=== PATIENT | male | born 1950 | race Caucasian/White ===

== ENCOUNTER → 2020-12-21 | Outpatient (CLI) | payer OTHER | LOC: SJCVCIMAG 16:16 → SJCVC 16:16 → SJCVCIMAG 12-25 15:26 | PROVIDERS: ATTEND Internal Medicine Cardiovascular Disease | DX: I48.0 Paroxysmal atrial fibrillation (principal); I49.5 Sick sinus syndrome; E66.9 Obesity, unspecified; N40.0 Benign prostatic hyperplasia without lower urinary tract symptoms; K21.9 Gastro-esophageal reflux disease without esophagitis; E78.5 Hyperlipidemia, unspecified; E55.9 Vitamin D deficiency, unspecified; Z98.890 Other specified postprocedural states; Z79.82 Long term (current) use of aspirin; Z79.899 Other long term (current) drug therapy; Z82.49 Family history of ischemic heart disease and other diseases of the circulatory system ==

== ENCOUNTER → 2020-12-25 | Outpatient (CLI) | payer OTHER | LOC: SJCVCIMAG 09:24 | PROVIDERS: ATTEND Internal Medicine Cardiovascular Disease | DX: I08.1 Rheumatic disorders of both mitral and tricuspid valves (principal); I48.91 Unspecified atrial fibrillation; Z79.899 Other long term (current) drug therapy ==

== ENCOUNTER → 2021-01-10 | Outpatient (CLI) | payer OTHER ==
[~2021-01-10] MED LIST: ADVIL200 M3 PO; ASA81BEC PO; CITRACAL-D3 MA1 EACH PO; CO Q-10100 M1 PO; EXCEDRIN MIGRA1 EAC1 PO; FLECAINIDE ACET50 M2 PO; GALZIN25 MG PO; MAGNESIUM250 M1 PO; NASACORT10.8 ML NARES; QUERCETIN DIHYDR1 GM PO; SILDENAFIL CIT100 MG PO; TOPROL XL25 MG PO; VITAMIN C1000 MG PO; VITAMIN D375 MCG PO
== END ==
LOC: LAB 10:34
PROVIDERS: ATTEND Internal Medicine Cardiovascular Disease
DX: Z01.812 Encounter for preprocedural laboratory examination (principal); Z20.822 Contact with and (suspected) exposure to COVID-19

== ENCOUNTER 2021-01-15 09:36 | Observation (INO) | payer OTHER ==
[~2021-01-15] VITALS: Ht 182.9 cm; Wt 83.9 kg
[2021-01-15] VITALS (8 sets, daily range): BP systolic 117–146; BP diastolic 59–88
--- NOTE | ~2021-01-15 | P ---
[facility] [place] [address] PROCEDURE REPORT Name: CL JONES Room #: 218-P [facility]..#: [id number] Admission: 01/15/21 Attend Phys: Ramiro Gil MD Discharge: Date of : 46 Report #: [id number] THIS REPORT FOR: cc: ADA LAI FAMILY PHYSICIAN or PCP Ramiro Gil MD ~ DATE OF SERVICE: 01/15/2021 PACEMAKER IMPLANTATION PREOPERATIVE DIAGNOSES: 1. Mobitz II second-degree heart block. 2. Paroxysmal atrial fibrillation. 3. Tachycardia-bradycardia syndrome. PROCEDURE PERFORMED: Dual-chamber pacemaker implantation. HISTORY: The patient is a 70-year-old recently with palpitations, lightheadedness, shortness of breath, who wore rn chronic showing periods of atrial fibrillation with rapid ventricular response and also documented Mobitz II second-degree heart block. Based on these findings, he meets criteria for tachycardia-bradycardia syndrome and is here for dual chamber pacemaker implantation. ANESTHESIA: The patient was put under MAC anesthesia with no anesthesia related complications. DESCRIPTION OF PROCEDURE: The patient underwent informed consent, we discussed the details of the procedure including the risks, which include but not limited to bleeding, infection, vascular damage, cardiac perforation and pneumothorax. He understood these risks and is willing to proceed. The patient was brought to the EP laboratory in a fasting nonsedated state and prepped and draped in a sterile fashion. He received IV antibiotics and underwent a venogram showing patency of the axillary vein. Next, I injected lidocaine to the level of the left clavicle, incision was made. A pocket was created over the prepectoral fascia and access was obtained twice through the left axillary vein using the extrathoracic approach with sheath position using the modified Seldinger technique. Next, under fluoroscopy, leads were positioned in the right ventricular apex and right atrial appendage with adequate pacing and sensing thresholds were sutured to the prepectoral fascia with Ethibond suture. Device was connected. Tug test performed. Pocket was irrigated with vancomycin. The pocket was closed in 2 layers using 2-0 for the deep layer, 3-0 for the middle layer and surgical glue was placed to the outer skin layer. The patient awoke neurologically hemodynamically intact. No complications. No significant bleeding. The implant of the pacemaker and leads were Medtronic. The generator [facility] [address] [place] [address] PROCEDURE REPORT Name: CL JONES Room #: 218-P [facility] Karina Garza#: [id number] Admission: 01/15/21 Attend Phys: Ramiro Gil MD Discharge: Date of : 46 Report #: [id number] was a model number, [id number], serial #[id number], atrial lead was a 5076, 52 cm, serial # [id number], RV lead was a 5076, 58 cm, serial # [id number]. Atrial lead demonstrates P-wave of 2.1 millivolts, pacing impedance 551 ohms. The patient's threshold 1.2 volts at 0.4 milliseconds. RV lead demonstrated R-wave of 11.6 mV, pacing impedance of 1000 ohms and a pacing threshold of 0.9 volts at 0.4 milliseconds. The device was programmed AAI-DDD mode 60-130. CONCLUSIONS: 1. Successful dual chamber pacemaker implantation. 2. Satisfactory atrial and ventricular pacing and sensing thresholds. RECOMMENDATIONS: 1. Now that the patient has a pacemaker in, we can safely initiate antiarrhythmic drug therapy in the form of flecainide 50 b.i.d. and Toprol 25 mg daily. 2. Anticoagulation will be initiated as an outpatient once the incision has healed and will be on aspirin therapy until then. By: [id number] Ramiro Gil MD /nt
[2021-01-15] MEDS ORDERED: VITAMIN C1000 MG PO (11:58)
[2021-01-15] MEDS ORDERED: CITRACAL-D3 MA1 EACH PO (11:58)
[2021-01-15] MEDS ORDERED: VITAMIN D375 MCG PO (11:59)
[2021-01-15] MEDS ORDERED: CO Q-10100 M1 PO (12:00)
[2021-01-15] MEDS ORDERED: MAGNESIUM250 M1 PO (12:00)
[2021-01-15] MEDS ORDERED: GALZIN25 MG PO (12:01)
[2021-01-15] MEDS ORDERED: QUERCETIN DIHYDR1 GM PO (12:02)
[2021-01-15] MEDS ORDERED: ASA81BEC PO (12:02)
[2021-01-15] MEDS ORDERED: SILDENAFIL CIT100 MG PO (12:04)
[2021-01-15] MEDS ORDERED: NASACORT10.8 ML NARES (12:05)
[2021-01-15] MEDS ORDERED: ADVIL200 M3 PO (12:07)
[2021-01-15] MEDS ORDERED: EXCEDRIN MIGRA1 EAC1 PO (12:09)
[2021-01-15 13:33] LABS: ABSOLUTE NEUTROPHILS 2.6 thou/uL (1.4-8.2); BASOPHILS 0.4 % (0.0-2.0); EOSINOPHILS 2.5 % (0.0-3.0); HEMATOCRIT 43.8 % (42.0-52.0); HEMOGLOBIN 14.4 gm/dL (14.0-18.0); LYMPHOCYTES 32.2 % (24.0-44.0); MCH 31.3 pg (26.0-34.0); MCHC 32.9 g/dL (28.0-37.0); MCV 95.1 fL (80.0-100.0); MONOCYTES 12.9 % (1.0-8.0)
[2021-01-15 13:37] LABS: CALCIUM 9.3 mg/dL (8.5-10.1); CREATININE 1.3 mg/dL (0.7-1.3)
[2021-01-15 13:43] LABS: ALBUMIN 3.9 g/dL (3.4-5.0); TOTAL BILIRUBIN 0.7 mg/dL (0.2-1.0); TOTAL PROTEIN 7.3 g/dL (6.4-8.2)
[2021-01-15 13:46] LABS: APTT 26.5 Seconds (24.5-32.8); PROTIME 10.9 Seconds (9.3-11.4)
[2021-01-15 13:53] LABS: LARGE PLATELETS RARE; PLATELET COUNT 155 thou/uL (150-400)
[2021-01-15] MEDS ORDERED: FLECAINIDE ACET50 M2 PO (16:01)
[2021-01-15] MEDS ORDERED: TOPROL XL25 MG PO (16:01)
--- NOTE | 2021-01-15 19:53 | NUR ---
PT. ARRIVED AT FLOOR CLOSE TO 1500; PT. AOX4; NO C/O PAIN; SR ON THE MONITOR; EDUCATED ABOUT BED REST; ST. UNDERSTANDING; EDUCATED ABOUT MANTAINING 45 D HEAD ELEVATED; ST. UNDERSTANDING; ADMISSION PERFORMED; ASSESSMENT CHARGED; FOLLOWING POC; PASSED ON REPORT;
[2021-01-16] VITALS: BP 123/83
[2021-01-16 05:00] VITALS: BP 126/83
[2021-01-16 08:05] VITALS: BP 124/75
[2021-01-16 10:59] VITALS: BP 124/75
== END 2021-01-16 11:39 | disposition home or self-care (01) ==
LOC: CATH 09:36 → 2N 14:57 → CATH 15:04 → 2N 01-16 11:39
PROVIDERS: ADMIT Internal Medicine Cardiovascular Disease; ATTEND Internal Medicine Cardiovascular Disease
DX: I49.5 Sick sinus syndrome (principal); I48.0 Paroxysmal atrial fibrillation; I44.1 Atrioventricular block, second degree; E78.5 Hyperlipidemia, unspecified; I25.10 Atherosclerotic heart disease of native coronary artery without angina pectoris; N40.0 Benign prostatic hyperplasia without lower urinary tract symptoms; R93.1 Abnormal findings on diagnostic imaging of heart and coronary circulation; E66.9 Obesity, unspecified; Z68.25 Body mass index [BMI] 25.0-25.9, adult; Z79.82 Long term (current) use of aspirin; Z79.899 Other long term (current) drug therapy
CPT/HCPCS: 62110; 62900; 70005

== ENCOUNTER → 2021-03-14 | Outpatient (CLI) | payer OTHER | LOC: SJCVC 15:42 | PROVIDERS: ATTEND Internal Medicine Cardiovascular Disease | DX: I48.0 Paroxysmal atrial fibrillation (principal); E66.9 Obesity, unspecified; E78.5 Hyperlipidemia, unspecified; R93.1 Abnormal findings on diagnostic imaging of heart and coronary circulation; I65.29 Occlusion and stenosis of unspecified carotid artery; N40.0 Benign prostatic hyperplasia without lower urinary tract symptoms; E55.9 Vitamin D deficiency, unspecified; K21.9 Gastro-esophageal reflux disease without esophagitis; Z95.0 Presence of cardiac pacemaker; Z79.899 Other long term (current) drug therapy; Z82.49 Family history of ischemic heart disease and other diseases of the circulatory system ==

== ENCOUNTER → 2021-04-27 | Outpatient (CLI) | payer OTHER ==
[2021-04-27 10:18] LABS: BASOPHILS 0.7 % (0.0-2.0); HEMATOCRIT 41.7 % (42.0-52.0); HEMOGLOBIN 14.2 gm/dL (14.0-18.0); LYMPHOCYTES 35.8 % (24.0-44.0); MCH 32.1 pg (26.0-34.0); MCHC 34.1 g/dL (28.0-37.0); MCV 94.1 fL (80.0-100.0); PLATELET COUNT 139 thou/uL (150-400); POLYS 46.5 % (36.0-66.0); RBC 4.43 mil/uL (4.50-6.00); RDW 13.9 % (10.5-14.5); WBC 4.3 thou/uL (4.0-11.0)
[2021-04-27 10:34] LABS: ALBUMIN 3.9 g/dL (3.4-5.0); CREATININE 1.2 mg/dL (0.7-1.3); POTASSIUM 4.4 mmol/L (3.5-5.1); TOTAL BILIRUBIN 0.7 mg/dL (0.2-1.0); TOTAL PROTEIN 6.9 g/dL (6.4-8.2)
== END ==
LOC: CAT 09:07
PROVIDERS: ATTEND Internal Medicine Cardiovascular Disease
DX: I48.91 Unspecified atrial fibrillation (principal)

== ENCOUNTER → 2021-04-30 | Outpatient (CLI) | payer OTHER ==
[~2021-04-30] VITALS: Ht 182.9 cm; Wt 87.5 kg
[~2021-04-30] MED LIST changes: +CARAC30 GM TOP; +XARELTO20 MG PO
--- NOTE | ~2021-04-30 | P ---
[facility] [place] [address] PROCEDURE REPORT Name: CL JONES Room #: REG Kiera HoltDelgadoTiffanieDelgado#: [id number] Admission: 04/30/21 Attend Phys: Ramiro Gil MD Discharge: Date of : 46 Report #: [id number] THIS REPORT FOR: cc: ADA LAI FAMILY PHYSICIAN or PCP Ramiro Gil MD ~ DATE OF SERVICE: 04/30/2021 PREOPERATIVE DIAGNOSIS: Atrial fibrillation/atrial flutter. POSTOPERATIVE DIAGNOSIS: Atrial fibrillation/atrial flutter. HISTORY: The patient is a 70-year-old male with history of sick sinus syndrome, status post Medtronic pacemaker implantation as well as atrial fibrillation and atrial flutter, here for ablation. PROCEDURES PERFORMED: 1. Atrial fibrillation ablation -- CPT code 40032. 2. 3D mapping -- CPT code 30355. 3. Intracardiac echo -- CPT code 18367. 4. Second pathway ablation -- CPT code 18766. 5. Preprocedural pacemaker reprogramming -- CPT code 93225. 6. Post-procedural pacemaker reprogram -- CPT code 51771. ANESTHESIA: The patient underwent general anesthesia with no anesthesia related complications. DESCRIPTION OF PROCEDURE: The patient was brought to the EP laboratory in a fasting and sedated state, prepped and draped in a standard fashion. Prior to initiation of the procedure, I did reprogram his pacemaker and lowered the atrial pacing rate down to 55 beats per minute. Next, I injected lidocaine at the right groin and obtained access in the right femoral vein x 3, placing an 8, 9 and 7-Setswana short sheath. Under fluoroscopy, I placed a decapolar catheter into the coronary sinus and ICE catheter into the right atrium. Next, the patient was systemically heparinized and a transseptal was performed using an SL1 sheath and a [place] needle. This was straightforward and I exchanged for the cryosheath and placed the Lasso catheter in the left atrium. Using the Lasso catheter I created a 3D geometry of the left atrium with evidence of 2 left pulmonary veins and 3 right pulmonary veins with evidence of a right middle pulmonary vein. This was merged with the patient's cardiac CT and [employer] 3D imaging as well. Next, the cryoballoon was placed in the left atrium and ablation was initiated. The left superior pulmonary vein underwent a 4-minute freeze and the vein isolated at 54 seconds. The left inferior pulmonary vein underwent a 4-minute freeze isolating at 50 seconds. The right superior pulmonary vein underwent a 180 second freeze which did not result in isolation. A second freeze of 3 minutes duration was performed resulting in isolation in [address] [address] PROCEDURE REPORT Name: CL JONES Room #: REG [place] Garza#: [id number] Admission: 04/30/21 Attend Phys: Ramiro Gil MD Discharge: Date of : 46 Report #: [id number] seconds. The right inferior pulmonary vein underwent a 4-minute freeze isolating at 80 seconds and then the right middle vein underwent a 3-minute freeze isolating at 50 seconds. All veins were re-interrogated and found to be isolated and all catheters and sheaths were pulled to the right atrium. ATRIAL FLUTTER ABLATION: The patient was prepped for atrial flutter ablation. This was performed using an 8 mm and a ramp sheath. Preablation, the transisthmus conduction time was 70 milliseconds. Post-ablation, it was 145 milliseconds. Ablation was performed at 70 shine and 60 degrees and a continuous drag lesion was performed. An additional line was also performed to ensure no recurrence. As such with intracardiac ultrasound, there is no pericardial effusion. Catheters and sheaths were pulled. The pacemaker was programmed back to its nominal settings. CONCLUSION: 1. Successful fibrillation ablation. 2. Successful atrial flutter ablation with evidence of bidirectional block. By: [id number] Ramiro Gil MD /nt
[2021-04-30 07:14] VITALS: BP 117/73
[2021-04-30 08:12] LABS: ABSOLUTE NEUTROPHILS 2.2 thou/uL (1.4-8.2); BASOPHILS 0.8 % (0.0-2.0); EOSINOPHILS 2.8 % (0.0-3.0); HEMATOCRIT 42.4 % (42.0-52.0); HEMOGLOBIN 14.2 gm/dL (14.0-18.0); LYMPHOCYTES 36.8 % (24.0-44.0); MCHC 33.6 g/dL (28.0-37.0); MCV 95.4 fL (80.0-100.0); MONOCYTES 11.6 % (1.0-8.0); PLATELET COUNT 148 thou/uL (150-400); RBC 4.44 mil/uL (4.50-6.00); WBC 4.7 thou/uL (4.0-11.0)
[2021-04-30 08:25] LABS: CALCIUM 8.9 mg/dL (8.5-10.1); CREATININE 1.3 mg/dL (0.7-1.3); POTASSIUM 3.6 mmol/L (3.5-5.1)
[2021-04-30 08:31] LABS: ALBUMIN 3.9 g/dL (3.4-5.0); TOTAL BILIRUBIN 0.6 mg/dL (0.2-1.0); TOTAL PROTEIN 7.3 g/dL (6.4-8.2)
[2021-04-30 08:35] LABS: APTT 27.9 Seconds (24.5-32.8); PROTIME 10.9 Seconds (10.5-12.1)
== END | disposition home or self-care (01) ==
LOC: CATH
PROVIDERS: ATTEND Internal Medicine Cardiovascular Disease
DX: I48.91 Unspecified atrial fibrillation (principal); I48.92 Unspecified atrial flutter; I49.5 Sick sinus syndrome; E78.5 Hyperlipidemia, unspecified; N40.0 Benign prostatic hyperplasia without lower urinary tract symptoms; K21.9 Gastro-esophageal reflux disease without esophagitis; Z98.890 Other specified postprocedural states; Z79.899 Other long term (current) drug therapy; Z87.442 Personal history of urinary calculi; Z88.8 Allergy status to other drugs, medicaments and biological substances; Z79.01 Long term (current) use of anticoagulants
CPT/HCPCS: 62110; 62900; 65020; 70005

== ENCOUNTER → 2021-08-02 | Outpatient (CLI) | payer OTHER | LOC: SJCVC 15:33 | PROVIDERS: ATTEND Internal Medicine Cardiovascular Disease | DX: I48.0 Paroxysmal atrial fibrillation (principal); I49.5 Sick sinus syndrome; D12.6 Benign neoplasm of colon, unspecified; N40.0 Benign prostatic hyperplasia without lower urinary tract symptoms; K21.9 Gastro-esophageal reflux disease without esophagitis; N20.0 Calculus of kidney; N48.6 Induration penis plastica; I47.1 Supraventricular tachycardia; E55.9 Vitamin D deficiency, unspecified; Z72.89 Other problems related to lifestyle; Z95.0 Presence of cardiac pacemaker; Z79.899 Other long term (current) drug therapy ==